=== PATIENT | male | born 1930 | race Caucasian/White ===

== ENCOUNTER 2017-04-01 15:06 | Inpatient (IN) | payer MEDICARE, OTHER ==
[~2017-04-01] VITALS: Ht 182.9 cm; Wt 90.7 kg
[2017-04-01 15:30] LABS: BASOPHILS # (AUTO) 0.1 /CMM (0.0-0.2); BASOPHILS % (AUTO) 1.4 % (0.0-2.0); EOSINOPHILS # (AUTO) 0.1 /CMM (0.0-0.7); EOSINOPHILS % (AUTO) 1.9 % (0.0-6.0); HEMATOCRIT 33 % (39-51); HEMOGLOBIN 11.9 g/dL (13.5-17.5); LYMPHOCYTES # (AUTO) 1.3 /CMM (0.8-4.8); LYMPHOCYTES % (AUTO) 21.7 % (20.0-44.0); MEAN CORPUSCULAR HEMOGLOBIN 34 PG (26.0-33.0); MEAN CORPUSCULAR HGB CONC 36 g/dl (31.0-36.0); MEAN CORPUSCULAR VOLUME 95 fL (80-96); MONOCYTES # (AUTO) 0.6 /CMM (0.1-1.30); MONOCYTES % (AUTO) 9.2 % (2.0-12.0); NEUTROPHILS # (AUTO) 3.9 /CMM (1.8-8.9); NEUTROPHILS % (AUTO) 65.8 % (43.0-81.0); PLATELET COUNT (AUTO) 193 /CMM (150-450); RDW COEFFICIENT OF VARIATION 12.4 (11.5-15.0); RED BLOOD CELL COUNT(AUTO) 3.46 MIL/uL (4.5-6.0)
[2017-04-01 15:44] LABS: CARBON DIOXIDE 29 mmol/L (21-32); CHLORIDE 105 mmol/L (98-107); CREATININE 1.1 mg/dL (0.6-1.3); GLUCOSE 108 mg/dL (74-106); SODIUM SERUM 139 mmol/L (136-145); UREA NITROGEN, BLOOD 26 mg/dL (7-18)
[2017-04-01 15:45] LABS: ALCOHOL, BLOOD < 3 mg/dL (0-0)
[2017-04-01] MEDS ORDERED: POLY119P2 PO (16:34)
[2017-04-01] MEDS ORDERED: FLUT1BLS IH (16:34)
[2017-04-01] MEDS ORDERED: TAMS0.4C34 PO (16:34)
[2017-04-01] MEDS ORDERED: BISA10SU8 RC (16:34)
[2017-04-01] MEDS ORDERED: QUET25TA PO (16:34)
[2017-04-01] MEDS ORDERED: MAGN400O6 PO (16:34)
[2017-04-01] MEDS ORDERED: ATOR20TA PO (16:34)
[2017-04-01] MEDS ORDERED: ASPI-1169 PO (16:34)
[2017-04-01] MEDS ORDERED: DIVA250T PO (16:34)
[2017-04-01] MEDS ORDERED: HYDR-552 PO (16:34)
[2017-04-01] MEDS ORDERED: ACET-2605 PO (16:34)
[2017-04-01] MEDS ORDERED: RIVA1PAT3 TD (16:34)
[2017-04-01] MEDS ORDERED: AMLO5TAB2 PO (16:34)
[2017-04-01] MEDS ORDERED: HYDR-4076 PO (16:34)
[2017-04-01] MEDS ORDERED: MAG30ORA PO (16:34)
[2017-04-01] MEDS ORDERED: FLUT9.9S BNOSTRILS (16:34)
[2017-04-01] MEDS ORDERED: QUET50TA PO (16:34)
[2017-04-01] MEDS ORDERED: CLOP75TA15 PO (16:34)
[2017-04-01] MEDS ORDERED: LORA-258 PO (16:34)
[2017-04-01] MEDS ORDERED: TEMA7.5C PO (16:34)
[2017-04-01 17:15] LABS: APPEARANCE,URINE Clear (CLEAR); BILIRUBIN,URINE Negative (NEGATIVE); BLOOD, URINE Negative Ery/uL (NEGATIVE); COLOR,URINE Yellow (YELLOW); KETONES,URINE 15 (NEGATIVE); LEUKOCYTE ESTERASE ,URINE Negative (NEGATIVE); NITRITE, URINE Negative (NEGATIVE); PROTEIN,URINE Negative (NEGATIVE); UGLUCOSE Negative (NEGATIVE); UROBILINOGEN,URINE 0.2 EU/dL (0.2)
[2017-04-01 17:32] LABS: BACTERIA,URINE None seen /HPF (None Seen); RBC,URINE 0-2 /HPF (0-2); SQUAMOUS EPITHELIAL CELL,UR Few /HPF (None Seen); WBC,URINE 0-2 /HPF (0-3)
[2017-04-01 18:41] VITALS: BP 148/69
[2017-04-01] MEDS ORDERED: MAG HYDROX/AL HYDROX/SIMETH 30 ML UDC PO PRN ×2 (19:00→20:30)
[2017-04-01] MEDS ORDERED: LORAZEPAM 0.5 MG TABLET PO PRN (19:00)
[2017-04-01] MEDS ORDERED: MAGNESIUM HYDROXIDE 30 ML UDC PO PRN (19:00)
[2017-04-01 19:45] VITALS: BP 140/77
[2017-04-01] MEDS ORDERED: DONE5TAB34 PO (19:51)
[2017-04-01] MEDS ORDERED: DICL100G34 (19:51)
[2017-04-01] MEDS ORDERED: MUPI15CR12 (19:51)
[2017-04-01] MEDS ORDERED: CARI350T27 (19:51)
[2017-04-01] MEDS ORDERED: BISACODYL SUPP (10 MG) 10 MG/SUPP.RECT SUPP.RECT RC PRN (20:30)
[2017-04-01] MEDS ORDERED: HYDROCODONE/APAP 5/325MG 1 EACH TABLET PO PRN (20:30)
[2017-04-01] MEDS ORDERED: MISCELLANEOUS MED 1 EA EA PO PRN (20:30)
[2017-04-01] MEDS: hydrALAZINE HCL 25 MG TABLET PO SCH (21:00)
[2017-04-01] MEDS: AMLODIPINE BESYLATE 5 MG TABLET PO SCH (21:00)
[2017-04-01] MEDS: TEMAZEPAM 7.5 MG CAPSULE PO PRN (22:53)
[2017-04-02] MEDS: hydrALAZINE HCL 25 MG TABLET PO SCH ×3 (05:00→22:03)
[2017-04-02] MEDS: DONEPEZIL 5 MG TABLET PO SCH (08:39)
[2017-04-02] MEDS: ASPIRIN 81 MG TAB.CHEW PO SCH (08:40)
[2017-04-02] MEDS: TAMSULOSIN 0.4 MG CAP.SR.24H PO SCH (08:40)
[2017-04-02] MEDS: CLOPIDOGREL BISULFATE 75 MG TABLET PO SCH (08:40)
[2017-04-02] MEDS: AMLODIPINE BESYLATE 5 MG TABLET PO SCH ×2 (08:44→22:02)
[2017-04-02 09:33] LABS: CHOLESTEROL 182 mg/dL (<200); HDL CHOLESTEROL 46 mg/dL (40-60); LDL 92 mg/dL (0-99); TRIGLYCERIDES 301 mg/dL (30-150)
[2017-04-02 09:37] VITALS: BP 133/78
[2017-04-02 09:40] LABS: ALANINE AMINOTRANSFERASE 33 U/L (12-78); ALBUMIN 3.8 g/dL (3.4-5.0); ALKALINE PHOSPHATASE 51 U/L (46-116); ASPARTATE AMINOTRANSFERASE 22 U/L (15-37); BILIRUBIN,TOTAL 0.5 mg/dL (0.2-1.0); CALCIUM, SERUM 9.2 mg/dL (8.5-10.1); CARBON DIOXIDE 28 mmol/L (21-32); CHLORIDE 103 mmol/L (98-107); CREATININE 1.1 mg/dL (0.6-1.3); GLUCOSE 171 mg/dL (74-106); POTASSIUM 3.7 mmol/L (3.5-5.1); SODIUM SERUM 140 mmol/L (136-145); TOTAL PROTEIN, SERUM 7.2 g/dL (6.4-8.2); UREA NITROGEN, BLOOD 24 mg/dL (7-18)
[2017-04-02] MEDS: FLUTICASONE/VILANTEROL 1 EACH BLST.W.DEV IH SCH (10:42)
[2017-04-02] MEDS: FLUTICASONE PROPIONATE 16 GM BOTTLE NS SCH (12:22)
[2017-04-02] MEDS: DIVALPROEX SODIUM 125 MG CAP.SPRINK PO SCH ×2 (13:19→16:33)
[2017-04-02] MEDS: QUETIAPINE FUMARATE 25 MG TABLET PO SCH ×2 (13:19→16:33)
[2017-04-02] MEDS: busPIRone 5 MG TABLET PO SCH ×2 (13:19→16:33)
[2017-04-02 16:00] VITALS: BP 144/67
[2017-04-02 19:43] VITALS: BP 141/67
[2017-04-02] MEDS: ATORVASTATIN 10 MG TABLET PO SCH (22:02)
[2017-04-03] MEDS: hydrALAZINE HCL 25 MG TABLET PO SCH ×3 (05:36→21:19)
[2017-04-03 08:00] VITALS: BP 153/82
[2017-04-03] MEDS: CLOPIDOGREL BISULFATE 75 MG TABLET PO SCH (08:49)
[2017-04-03] MEDS: AMLODIPINE BESYLATE 5 MG TABLET PO SCH ×2 (08:50→21:19)
[2017-04-03] MEDS: busPIRone 5 MG TABLET PO SCH ×3 (08:51→17:26)
[2017-04-03] MEDS: QUETIAPINE FUMARATE 25 MG TABLET PO SCH ×3 (08:51→17:26)
[2017-04-03] MEDS: DIVALPROEX SODIUM 125 MG CAP.SPRINK PO SCH ×4 (08:51→21:14)
[2017-04-03] MEDS: ASPIRIN 81 MG TAB.CHEW PO SCH (08:51)
[2017-04-03] MEDS: DONEPEZIL 5 MG TABLET PO SCH (08:51)
[2017-04-03] MEDS: TAMSULOSIN 0.4 MG CAP.SR.24H PO SCH (08:52)
[2017-04-03] MEDS: FLUTICASONE/VILANTEROL 1 EACH BLST.W.DEV IH SCH (12:38)
[2017-04-03] MEDS: FLUTICASONE PROPIONATE 16 GM BOTTLE NS SCH (12:39)
[2017-04-03 16:26] VITALS: BP 110/60
[2017-04-03 20:19] VITALS: BP 155/63
[2017-04-03] MEDS: ATORVASTATIN 10 MG TABLET PO SCH (21:13)
[2017-04-04] MEDS: hydrALAZINE HCL 25 MG TABLET PO SCH ×3 (05:16→21:30)
[2017-04-04 08:00] VITALS: BP 133/74
[2017-04-04] MEDS: FLUTICASONE PROPIONATE 16 GM BOTTLE NS SCH (09:33)
[2017-04-04] MEDS: FLUTICASONE/VILANTEROL 1 EACH BLST.W.DEV IH SCH (09:33)
[2017-04-04] MEDS: QUETIAPINE FUMARATE 25 MG TABLET PO SCH ×4 (09:33→21:29)
[2017-04-04] MEDS: TAMSULOSIN 0.4 MG CAP.SR.24H PO SCH (09:34)
[2017-04-04] MEDS: busPIRone 5 MG TABLET PO SCH ×3 (09:34→16:40)
[2017-04-04] MEDS: ASPIRIN 81 MG TAB.CHEW PO SCH (09:34)
[2017-04-04] MEDS: DONEPEZIL 5 MG TABLET PO SCH (09:34)
[2017-04-04] MEDS: DIVALPROEX SODIUM 125 MG CAP.SPRINK PO SCH ×3 (09:34→21:29)
[2017-04-04] MEDS: AMLODIPINE BESYLATE 5 MG TABLET PO SCH ×2 (09:34→21:30)
[2017-04-04] MEDS: CLOPIDOGREL BISULFATE 75 MG TABLET PO SCH (09:34)
[2017-04-04 13:28] VITALS: BP 128/62
[2017-04-04 15:52] VITALS: BP 104/55
[2017-04-04 20:14] VITALS: BP 150/74
[2017-04-04] MEDS: ATORVASTATIN 10 MG TABLET PO SCH (21:29)
[2017-04-05] MEDS: hydrALAZINE HCL 25 MG TABLET PO SCH (05:04)
[2017-04-05 08:00] VITALS: BP 160/79
[2017-04-05 08:26] LABS: BASOPHILS # (AUTO) 0.1 /CMM (0.0-0.2); BASOPHILS % (AUTO) 0.7 % (0.0-2.0); EOSINOPHILS # (AUTO) 0.1 /CMM (0.0-0.7); EOSINOPHILS % (AUTO) 1.5 % (0.0-6.0); HEMATOCRIT 36 % (39-51); HEMOGLOBIN 12.4 g/dL (13.5-17.5); LYMPHOCYTES % (AUTO) 13.1 % (20.0-44.0); MEAN CORPUSCULAR HEMOGLOBIN 33 PG (26.0-33.0); MEAN CORPUSCULAR HGB CONC 34 g/dl (31.0-36.0); MEAN CORPUSCULAR VOLUME 97 fL (80-96); MONOCYTES # (AUTO) 0.7 /CMM (0.1-1.30); NEUTROPHILS # (AUTO) 5.5 /CMM (1.8-8.9); NEUTROPHILS % (AUTO) 75.7 % (43.0-81.0); PLATELET COUNT (AUTO) 194 /CMM (150-450); RDW COEFFICIENT OF VARIATION 12.5 (11.5-15.0); RED BLOOD CELL COUNT(AUTO) 3.75 MIL/uL (4.5-6.0); WHITE BLOOD COUNT (AUTO) 7.4 K/uL (4.3-11.0)
[2017-04-05] MEDS: FLUTICASONE/VILANTEROL 1 EACH BLST.W.DEV IH SCH (08:42)
[2017-04-05] MEDS: FLUTICASONE PROPIONATE 16 GM BOTTLE NS SCH (08:42)
[2017-04-05 08:59] LABS: VALPROIC ACID 24 ug/mL (50-100)
[2017-04-05 09:16] LABS: ALANINE AMINOTRANSFERASE 28 U/L (12-78); ALBUMIN 3.6 g/dL (3.4-5.0); ALKALINE PHOSPHATASE 52 U/L (46-116); ASPARTATE AMINOTRANSFERASE 20 U/L (15-37); BILIRUBIN,TOTAL 0.5 mg/dL (0.2-1.0); CALCIUM, SERUM 8.9 mg/dL (8.5-10.1); CARBON DIOXIDE 28 mmol/L (21-32); CHLORIDE 107 mmol/L (98-107); GLUCOSE 127 mg/dL (74-106); POTASSIUM 4.2 mmol/L (3.5-5.1); SODIUM SERUM 145 mmol/L (136-145); UREA NITROGEN, BLOOD 22 mg/dL (7-18)
[2017-04-05] MEDS: AMLODIPINE BESYLATE 5 MG TABLET PO SCH ×2 (09:37→21:21)
[2017-04-05] MEDS: ASPIRIN 81 MG TAB.CHEW PO SCH (09:37)
[2017-04-05] MEDS: QUETIAPINE FUMARATE 25 MG TABLET PO SCH ×4 (09:37→21:22)
[2017-04-05] MEDS: busPIRone 5 MG TABLET PO SCH ×3 (09:37→16:04)
[2017-04-05] MEDS: DONEPEZIL 5 MG TABLET PO SCH (09:37)
[2017-04-05] MEDS: DIVALPROEX SODIUM 125 MG CAP.SPRINK PO SCH ×4 (09:37→21:21)
[2017-04-05] MEDS: CLOPIDOGREL BISULFATE 75 MG TABLET PO SCH (09:38)
[2017-04-05] MEDS: TAMSULOSIN 0.4 MG CAP.SR.24H PO SCH (09:38)
[2017-04-05] MEDS ORDERED: hydrALAZINE HCL 25 MG TABLET PO PRN (11:30)
[2017-04-05 11:52] VITALS: BP 118/69
[2017-04-05] MEDS: LISINOPRIL (10MG) 10 MG TABLET PO SCH (11:52)
[2017-04-05 15:58] VITALS: BP 111/58
[2017-04-05 20:00] VITALS: BP 122/67
[2017-04-05] MEDS: ATORVASTATIN 10 MG TABLET PO SCH (21:22)
[2017-04-06 08:00] VITALS: BP 146/79
[2017-04-06 08:00] LABS: CALCIUM, SERUM 9.2 mg/dL (8.5-10.1); CARBON DIOXIDE 27 mmol/L (21-32); CHLORIDE 105 mmol/L (98-107); CREATININE 1.2 mg/dL (0.6-1.3); GLUCOSE 137 mg/dL (74-106); PHOSPHORUS 3.5 mg/dL (2.5-4.9); POTASSIUM 4.1 mmol/L (3.5-5.1); SODIUM SERUM 142 mmol/L (136-145); UREA NITROGEN, BLOOD 26 mg/dL (7-18)
[2017-04-06] MEDS: ASPIRIN 81 MG TAB.CHEW PO SCH (09:17)
[2017-04-06] MEDS: DONEPEZIL 5 MG TABLET PO SCH (09:17)
[2017-04-06] MEDS: DIVALPROEX SODIUM 125 MG CAP.SPRINK PO SCH ×4 (09:17→21:23)
[2017-04-06] MEDS: TAMSULOSIN 0.4 MG CAP.SR.24H PO SCH (09:17)
[2017-04-06] MEDS: busPIRone 5 MG TABLET PO SCH ×3 (09:17→17:00)
[2017-04-06] MEDS: QUETIAPINE FUMARATE 25 MG TABLET PO SCH ×4 (09:17→21:23)
[2017-04-06] MEDS: LISINOPRIL (10MG) 10 MG TABLET PO SCH (09:17)
[2017-04-06] MEDS: CLOPIDOGREL BISULFATE 75 MG TABLET PO SCH (09:17)
[2017-04-06] MEDS: FLUTICASONE PROPIONATE 16 GM BOTTLE NS SCH (09:18)
[2017-04-06] MEDS: FLUTICASONE/VILANTEROL 1 EACH BLST.W.DEV IH SCH (09:18)
[2017-04-06] MEDS: AMLODIPINE BESYLATE 5 MG TABLET PO SCH ×2 (09:18→20:57)
[2017-04-06 09:36] LABS: THYROID STIMULATING HORMONE 1.357 uIU/mL (0.358-3.74)
[2017-04-06 16:00] VITALS: BP 129/58
[2017-04-06] MEDS: TEMAZEPAM 7.5 MG CAPSULE PO PRN (20:58)
[2017-04-06] MEDS: ATORVASTATIN 10 MG TABLET PO SCH (21:23)
[2017-04-06 21:34] VITALS: BP 137/69
[2017-04-06] MEDS: ACETAMINOPHEN 325 MG TABLET PO PRN (22:39)
[2017-04-07 08:00] VITALS: BP 120/60
[2017-04-07 08:12] LABS: BASOPHILS % (AUTO) 0.3 % (0.0-2.0); EOSINOPHILS % (AUTO) 0.1 % (0.0-6.0); HEMATOCRIT 34 % (39-51); HEMOGLOBIN 12.1 g/dL (13.5-17.5); LYMPHOCYTES # (AUTO) 0.5 /CMM (0.8-4.8); LYMPHOCYTES % (AUTO) 5.7 % (20.0-44.0); MEAN CORPUSCULAR HEMOGLOBIN 34 PG (26.0-33.0); MEAN CORPUSCULAR HGB CONC 35 g/dl (31.0-36.0); MEAN CORPUSCULAR VOLUME 97 fL (80-96); MONOCYTES # (AUTO) 0.8 /CMM (0.1-1.30); MONOCYTES % (AUTO) 9.2 % (2.0-12.0); NEUTROPHILS # (AUTO) 7.5 /CMM (1.8-8.9); NEUTROPHILS % (AUTO) 84.7 % (43.0-81.0); PLATELET COUNT (AUTO) 166 /CMM (150-450); RDW COEFFICIENT OF VARIATION 12.8 (11.5-15.0); RED BLOOD CELL COUNT(AUTO) 3.56 MIL/uL (4.5-6.0); WHITE BLOOD COUNT (AUTO) 8.8 K/uL (4.3-11.0)
[2017-04-07 08:32] LABS: CALCIUM, SERUM 8.8 mg/dL (8.5-10.1); CARBON DIOXIDE 26 mmol/L (21-32); CHLORIDE 106 mmol/L (98-107); CREATININE 0.9 mg/dL (0.6-1.3); GLUCOSE 148 mg/dL (74-106); PHOSPHORUS 2.8 mg/dL (2.5-4.9); POTASSIUM 3.5 mmol/L (3.5-5.1); SODIUM SERUM 142 mmol/L (136-145); UREA NITROGEN, BLOOD 20 mg/dL (7-18)
[2017-04-07] MEDS: FLUTICASONE PROPIONATE 16 GM BOTTLE NS SCH (10:06)
[2017-04-07] MEDS: FLUTICASONE/VILANTEROL 1 EACH BLST.W.DEV IH SCH (10:06)
[2017-04-07] MEDS: ASPIRIN 81 MG TAB.CHEW PO SCH (10:07)
[2017-04-07] MEDS: QUETIAPINE FUMARATE 25 MG TABLET PO SCH ×3 (10:07→22:53)
[2017-04-07] MEDS: LISINOPRIL (10MG) 10 MG TABLET PO SCH (10:08)
[2017-04-07] MEDS: busPIRone 5 MG TABLET PO SCH ×3 (10:08→16:33)
[2017-04-07] MEDS: AMLODIPINE BESYLATE 5 MG TABLET PO SCH ×2 (10:08→21:29)
[2017-04-07] MEDS: CLOPIDOGREL BISULFATE 75 MG TABLET PO SCH (10:09)
[2017-04-07] MEDS: TAMSULOSIN 0.4 MG CAP.SR.24H PO SCH (10:09)
[2017-04-07] MEDS: DIVALPROEX SODIUM 125 MG CAP.SPRINK PO SCH ×4 (10:09→21:30)
[2017-04-07] MEDS: DONEPEZIL 5 MG TABLET PO SCH (10:09)
[2017-04-07] MEDS ORDERED: GUAIFENESIN/CODEINE 10 ML UDC PO PRN (15:30)
[2017-04-07 16:00] VITALS: BP 129/62
[2017-04-07] MEDS ORDERED: LEVOFLOXACIN (500MG) 500 MG TABLET PO SCH (16:00)
[2017-04-07] MEDS: GUAIFENESIN LA 600 MG TABLET.SA PO SCH ×2 (16:31→21:29)
[2017-04-07] MEDS: BENZONATATE 100 MG CAPSULE PO SCH (16:47)
[2017-04-07 20:00] VITALS: BP 119/57
[2017-04-07] MEDS: ATORVASTATIN 10 MG TABLET PO SCH (21:30)
[2017-04-07] MEDS: TEMAZEPAM 7.5 MG CAPSULE PO PRN (21:30)
[2017-04-07] MEDS ORDERED: ALBUTEROL FS 2.5 MG/0.5 ML VIAL.NEB ONE (21:41)
[2017-04-07] MEDS ORDERED: IPRATROPIUM NEB FS 0.5 MG/2.5 ML AMPUL.NEB ONE (21:42)
[2017-04-07] MEDS: IPRATROPIUM NEB FS 0.5 MG/2.5 ML AMPUL.NEB NEB PRN (21:51)
[2017-04-07] MEDS: ALBUTEROL FS 2.5 MG/0.5 ML VIAL.NEB NEB PRN (21:53)
[2017-04-08] MEDS: ACETAMINOPHEN 325 MG TABLET PO PRN (01:11)
[2017-04-08 07:40] LABS: BASOPHILS % (AUTO) 0.4 % (0.0-2.0); HEMATOCRIT 30 % (39-51); HEMOGLOBIN 10.5 g/dL (13.5-17.5); LYMPHOCYTES # (AUTO) 0.5 /CMM (0.8-4.8); LYMPHOCYTES % (AUTO) 8.2 % (20.0-44.0); MEAN CORPUSCULAR HEMOGLOBIN 34 PG (26.0-33.0); MEAN CORPUSCULAR HGB CONC 35 g/dl (31.0-36.0); MEAN CORPUSCULAR VOLUME 97 fL (80-96); MONOCYTES # (AUTO) 0.8 /CMM (0.1-1.30); NEUTROPHILS # (AUTO) 5.1 /CMM (1.8-8.9); NEUTROPHILS % (AUTO) 79.4 % (43.0-81.0); PLATELET COUNT (AUTO) 165 /CMM (150-450); RDW COEFFICIENT OF VARIATION 12.9 (11.5-15.0); RED BLOOD CELL COUNT(AUTO) 3.11 MIL/uL (4.5-6.0); WHITE BLOOD COUNT (AUTO) 6.4 K/uL (4.3-11.0)
[2017-04-08 07:56] LABS: CALCIUM, SERUM 8.5 mg/dL (8.5-10.1); CARBON DIOXIDE 26 mmol/L (21-32); CHLORIDE 107 mmol/L (98-107); CREATININE 1.3 mg/dL (0.6-1.3); GLUCOSE 158 mg/dL (74-106); PHOSPHORUS 3.5 mg/dL (2.5-4.9); POTASSIUM 3.8 mmol/L (3.5-5.1); SODIUM SERUM 144 mmol/L (136-145); UREA NITROGEN, BLOOD 27 mg/dL (7-18); VALPROIC ACID 23 ug/mL (50-100)
[2017-04-08 08:00] VITALS: BP 97/53
[2017-04-08 09:00] VITALS: BP 97/53
[2017-04-08] MEDS: GUAIFENESIN LA 600 MG TABLET.SA PO SCH (09:00)
[2017-04-08] MEDS: DONEPEZIL 5 MG TABLET PO SCH (09:00)
[2017-04-08] MEDS: TAMSULOSIN 0.4 MG CAP.SR.24H PO SCH (09:00)
[2017-04-08] MEDS: BENZONATATE 100 MG CAPSULE PO SCH ×2 (09:00→12:59)
[2017-04-08] MEDS: FLUTICASONE PROPIONATE 16 GM BOTTLE NS SCH (09:00)
[2017-04-08] MEDS: DIVALPROEX SODIUM 125 MG CAP.SPRINK PO SCH ×2 (09:00→12:59)
[2017-04-08] MEDS: QUETIAPINE FUMARATE 25 MG TABLET PO SCH (09:00)
[2017-04-08] MEDS: LISINOPRIL (10MG) 10 MG TABLET PO SCH (09:00)
[2017-04-08] MEDS ORDERED: predniSONE 20 MG TABLET PO SCH (09:00)
[2017-04-08] MEDS: FLUTICASONE/VILANTEROL 1 EACH BLST.W.DEV IH SCH (09:00)
[2017-04-08] MEDS: AMLODIPINE BESYLATE 5 MG TABLET PO SCH (09:00)
[2017-04-08] MEDS: busPIRone 5 MG TABLET PO SCH ×2 (09:00→12:59)
[2017-04-08] MEDS: ASPIRIN 81 MG TAB.CHEW PO SCH (09:00)
[2017-04-08] MEDS: CLOPIDOGREL BISULFATE 75 MG TABLET PO SCH (09:00)
[2017-04-08] MEDS: IPRATROPIUM NEB FS 0.5 MG/2.5 ML AMPUL.NEB NEB PRN (11:38)
[2017-04-08] MEDS: ALBUTEROL FS 2.5 MG/0.5 ML VIAL.NEB NEB PRN (11:38)
[2017-04-08] MEDS ORDERED: PRED20TA PO (15:26)
[2017-04-08] MEDS ORDERED: ACET325T53 PO (15:26)
[2017-04-08] MEDS ORDERED: IPRA0.2S49 IH (15:26)
[2017-04-08] MEDS ORDERED: LEVO500T75 PO (15:26)
[2017-04-08] MEDS ORDERED: LISI10TA5 PO (15:26)
[2017-04-08] MEDS ORDERED: GUAI600T53 PO (15:26)
[2017-04-08] MEDS ORDERED: BENZ-38 PO (15:26)
[2017-04-08] MEDS ORDERED: ALBU2.5V13 IH (15:26)
[2017-04-08] MEDS ORDERED: GUAI118S13 PO (15:26)
[2017-04-08] MEDS ORDERED: [UNRECOGNIZED DRUG - CODE] IV (15:26)
[2017-04-08] MEDS ORDERED: PIPERACILLIN /TAZOBACTAM 4.5 G in IV D5W 50 ML IV SCH (18:00)
== END 2017-04-08 14:42 | disposition short-term general hospital (02) | DRG 885 ==
LOC: ER 15:09 → GPS 17:30
PROVIDERS: ADMIT Psychiatry & Neurology Psychosomatic Medicine; ATTEND Psychiatry & Neurology Psychosomatic Medicine
DX: F29 Unspecified psychosis not due to a substance or known physiological condition (principal); F02.80 Dementia in other diseases classified elsewhere, unspecified severity, without behavioral disturbance, psychotic disturbance, mood disturbance, and anxiety; I11.0 Hypertensive heart disease with heart failure; J18.9 Pneumonia, unspecified organism; I50.9 Heart failure, unspecified; G31.83 Neurocognitive disorder with Lewy bodies; F41.9 Anxiety disorder, unspecified; I25.10 Atherosclerotic heart disease of native coronary artery without angina pectoris; E78.5 Hyperlipidemia, unspecified; F32.9 Major depressive disorder, single episode, unspecified; J44.9 Chronic obstructive pulmonary disease, unspecified; M19.90 Unspecified osteoarthritis, unspecified site; M81.0 Age-related osteoporosis without current pathological fracture; Z66 Do not resuscitate; Z85.46 Personal history of malignant neoplasm of prostate; Z95.1 Presence of aortocoronary bypass graft; Z73.6 Limitation of activities due to disability; N40.0 Benign prostatic hyperplasia without lower urinary tract symptoms
CPT/HCPCS: 36415; 71045-TC; 80048-TC; 80053-TC; 80061-TC; 80164-TC; 80305; 81000-TC; 83735-TC; 84100-TC; 84443-TC; 85025-TC; 87040-TC; 87081-TC; 87400; 94640-TC; A4606; G0480; J2543; J7060; Z7610

== ENCOUNTER 2017-04-08 15:07 | Inpatient (IN) | payer MEDICARE, OTHER ==
[~2017-04-08] VITALS: Ht 175.3 cm; Wt 71.9 kg
[~2017-04-08 15:07] MED LIST: ACET-2605 PO; AMLO5TAB2 PO; ASPI-1169 PO; ATOR20TA PO; BISA10SU8 RC; CARI350T27; CLOP75TA15 PO; DICL100G34; DONE5TAB34 PO; FLUT1BLS IH; FLUT9.9S BNOSTRILS; HYDR-4076 PO; HYDR-552 PO; MAG30ORA PO; MAGN400O6 PO; MUPI15CR12; POLY119P2 PO; TAMS0.4C34 PO
[2017-04-08] MEDS ORDERED: GUAI118S13 PO (15:26)
[2017-04-08] MEDS ORDERED: IPRA0.2S49 IH (15:26)
[2017-04-08] MEDS ORDERED: BENZ-38 PO (15:26)
[2017-04-08] MEDS ORDERED: [UNRECOGNIZED DRUG - CODE] IV (15:26)
[2017-04-08] MEDS ORDERED: GUAI600T53 PO (15:26)
[2017-04-08] MEDS ORDERED: ACET325T53 PO (15:26)
[2017-04-08] MEDS ORDERED: ALBU2.5V13 IH (15:26)
[2017-04-08] MEDS ORDERED: LISI10TA5 PO (15:26)
[2017-04-08] MEDS ORDERED: LEVO500T75 PO (15:26)
[2017-04-08] MEDS ORDERED: PRED20TA PO (15:26)
[2017-04-08 15:30] VITALS: BP 129/73
--- NOTE | 2017-04-08 15:30 | NUR ---
ADMISSION NOTES PATIENT ADMITTED FROM [facility] 86 Y/OLD MALE ON DX OF R/O ASPIRATION PRECAUTION, PNEUMONIA. PATIENT A/O X1, CONFUSED, NEED CONSTANT REDIRECTION BUT REDIRECTABLE, V/S TAKEN T-98.6, R-19, P-104, BP -129/73, O2-94 ROOM AIR. 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 BELONGING AND CONTRABAND CHECKED, CALL LIGHT WITHIN TO REACH, BED ALARM ON, SAFETY PRECAUTION MAINTAINED ALL THE TIME. AWARE PATIENT ADMISSION. CONTINUED MONITORING.
[2017-04-08 16:00] VITALS: BP 129/73
--- NOTE | 2017-04-08 18:00 | NUR ---
RN NOTES PATIENT IN THE BED CONFUSED , NEED CONSTANT REDIRECTION, NO ACUTE DISTRESS, NO RESPIRATORY DISTRESS, PATIENT REFUSED IV ACCESS LINE, CALL LIGHT WITHIN TO REACH, ENDORSED ONCOMING NURSE FOR CONTINUATION OF CARE.
--- NOTE | 2017-04-08 19:30 | NUR ---
MS RN NOTE RECEIVED PATIENT ALERT X1 IN BED. NO SOB OR RESPIRATORY DISTRESS NOTED. PATIENT DENIES ANY PAIN OR DISCOMFORT AT THIS TIME. PATIENT HAS NO IV ACCESS, AND IS REFUSING TO HAVE IV PLACED. EXPLAINED BENEFITS OF IV. STATED THAT HE NEEDS FLUIDS/ANTIBIOTICS. PT. CONTINUES TO REFUSE. WILL TRY AGAIN LATER. BED LOCKED AND IN LOWEST POSITION. SIDE RAILS UP, CALL LIGHT WITHIN REACH. WILL CONTINUE TO MONITOR.
[2017-04-08] MEDS: ASPIRIN 81 MG TAB.CHEW PO SCH (20:30)
[2017-04-08] MEDS ORDERED: hydrALAZINE HCL 25 MG TABLET PO PRN (20:30)
[2017-04-08] MEDS ORDERED: ENOXAPARIN SODIUM 40 MG/0.4 ML DISP.SYRIN SQ SCH (20:30)
[2017-04-08] MEDS ORDERED: Z GUARD REMEDY 2 OZ OINT TP PRN (20:30)
[2017-04-08] MEDS ORDERED: ACETAMINOPHEN 325 MG TABLET PO PRN (20:30)
[2017-04-08] MEDS ORDERED: MAG HYDROX/AL HYDROX/SIMETH 30 ML UDC PO PRN ×2 (20:30)
[2017-04-08] MEDS ORDERED: MAGNESIUM HYDROXIDE 30 ML UDC PO PRN (20:30)
[2017-04-08] MEDS ORDERED: BISACODYL SUPP (10 MG) 10 MG/SUPP.RECT SUPP.RECT RC PRN (20:30)
[2017-04-08] MEDS ORDERED: ONDANSETRON HCL/PF 4 MG/2 ML VIAL IVP PRN (20:30)
[2017-04-08] MEDS ORDERED: HYDROCODONE/APAP 5/325MG 1 EACH TABLET PO PRN (20:30)
[2017-04-08] MEDS ORDERED: ZOLPIDEM TARTRATE 5 MG TABLET PO PRN (20:30)
[2017-04-08] MEDS ORDERED: ALBUTEROL FS 2.5 MG/3 ML VIAL.NEB NEB PRN (20:30)
[2017-04-08] MEDS ORDERED: IV NS 0.9% 1,000 ML IV PRN (21:00)
[2017-04-08] MEDS: GUAIFENESIN LA 600 MG TABLET.SA PO SCH (21:00)
[2017-04-08] MEDS ORDERED: PIPERACILLIN /TAZOBACTAM 4.5 G in IV D5W 50 ML IV SCH (21:00)
--- NOTE | 2017-04-08 21:30 | NUR ---
MS RN NOTE PATIENT REFUSING IV INSERTION, ALL MEDICATION AND LAB DRAWS. EDUCATED PATIENT ON IMPORTANCE. CONTINUES TO REFUSE. WILL NOTIFY MD FILTRATION SUPERVISOR.
--- NOTE | 2017-04-08 21:35 | NUR ---
MS RN NOTE SPOKE WITH OVER THE TELEPHONE. SHE STATES THAT PATIENT IS ALWAYS CONFUSED AND REFUSES CARE WHEREVER HE GOES. SHE STATED THAT WHENEVER HE HAS AN IV, HE PULLS IT OUT. SHE SAID THAT SHE WILL BE HERE LATE TOMORROW MORNING.
--- NOTE | 2017-04-08 21:45 | NUR ---
MS RN NOTE INFORMED DR. BRIONES THAT PATIENT IS NON-COMPLIANT, REFUSING IV, REFUSING ALL CARE. NEW ORDER FOR MID-LINE INSERTION AT THIS TIME. WILL CALL JET DYEING MACHINE OPERATOR.
--- NOTE | 2017-04-08 21:50 | NUR ---
MS RN NOTE INFORMED CHISEL WORKER JOSE THAT PATIENT NEEDS A MIDLINE. JOSE SAYS THAT MICHELLE WILL BE HERE AR APPROX. 2300 TO INSERT. WILL CONTINUE TO MONITOR.
[2017-04-08 22:00] VITALS: BP 129/73
--- NOTE | 2017-04-08 23:00 | NUR ---
MS RN NOTE INFORMED REGARDING LACTIC ACID OF 2.3. STILL WAITING FOR MIDLINE. PATIENT CONTINUES TO REFUSE IV ACCESS AT THIS TIME. WILL CONTINUE TO MONITOR.
[2017-04-08 23:27] LABS: CARBON DIOXIDE 28 mmol/L (21-32); CHLORIDE 109 mmol/L (98-107); CREATININE 1.2 mg/dL (0.6-1.3); GLUCOSE 126 mg/dL (74-106); POTASSIUM 4.1 mmol/L (3.5-5.1); SODIUM SERUM 146 mmol/L (136-145); UREA NITROGEN, BLOOD 31 mg/dL (7-18)
[2017-04-08 23:37] LABS: ALANINE AMINOTRANSFERASE 35 U/L (12-78); ALBUMIN 2.7 g/dL (3.4-5.0); ALKALINE PHOSPHATASE 49 U/L (46-116); ASPARTATE AMINOTRANSFERASE 64 U/L (15-37); BILIRUBIN,TOTAL 0.7 mg/dL (0.2-1.0); TOTAL PROTEIN, SERUM 7.2 g/dL (6.4-8.2)
--- NOTE | 2017-04-09 00:30 | NUR ---
MS JELANI POLLACK SPOKE WITH MICHELLE HUSAIN THE TELEPHONE REGARDING MIDLINE INSERTION. HE SAID HE WILL BE HERE SHORTLY.
[2017-04-09 01:17] LABS: BILIRUBIN,DIRECT 0.2 mg/dL (0.0-0.2)
[2017-04-09] MEDS ORDERED: IPRATROPIUM NEB FS 0.5 MG/2.5 ML AMPUL.NEB ONE (01:28)
[2017-04-09] MEDS: IPRATROPIUM NEB FS 0.5 MG/2.5 ML AMPUL.NEB IH SCH ×4 (01:31→19:47)
--- NOTE | 2017-04-09 02:00 | NUR ---
MS RN NOTE LISA PLACED MIDLINE #18 TO MARTHA. PER LISA, PATIENT TOLERATED PROCEDURE OKAY. NO BLEEDING OR BRUISING NOTED. WILL CONTINUE TO MONITOR.
--- NOTE | 2017-04-09 04:15 | NUR ---
MS RN NOTE PATIENT PULLED OUT TUBING FROM NS BAG AND THEN INCREASINGLY AGITATED, PULLED OUT MIDLINE. ATTEMPTED TO DE-ESCALATE PATIENT. WILL NOTIFY MD. BED LOCKED AND IN LOWEST POSITION. BED ALARM ON. WILL CONTINUE TO MONITOR.
[2017-04-09] MEDS ORDERED: LORAZEPAM INJ 2 MG/ML VIAL IM ONE (04:30)
[2017-04-09] MEDS ORDERED: LORAZEPAM INJ 2 MG/ML VIAL IV PRN (04:30)
[2017-04-09] MEDS ORDERED: LORAZEPAM INJ 2 MG/ML VIAL ONE (04:33)
--- NOTE | 2017-04-09 04:40 | NUR ---
MS RN NOTE RECEIVED ORDERS FROM FOR ATIVAN 1MG IM AND BILATERAL SOFT WRIST RESTRAINTS. CARRIED OUT. PATIENT STABLE AT THIS TIME.
--- NOTE | 2017-04-09 04:49 | NUR ---
MS RN NOTE PATIENT STABLE AT THIS TIME. SLEEPING. VS WNL FOR APTIENT. WILL CONTINUE TO MONITOR.
--- NOTE | 2017-04-09 06:15 | NUR ---
MS RN NOTE ATTEMPTED TWICE TO PLACE AN IV WITH NO SUCCESS. PATIENT AGITATED. BILATERAL SOFT WRIST RESTRAINTS IN PLACE. ALL NEEDS MET AND ATTENDED TO. WILL ENDORSE TO DAY SHIFT FOR JAYA.
--- NOTE | 2017-04-09 07:00 | NUR ---
MS RN OPENING NOTES. PT A&0X1, PT WITH RESTRAINTS APPLIED. NEURO INTACT, PT REPOSITIONED. ENDORSED PT WAITING FOR MIDLINE DUE TO REMOVAL OF MULTIPLE IV LINES DURING NIGHT. PT REMAINS COMBATIVE. PT TOLERATING ROOM AIR WITHOUT S/S OF RESPIRATORY DISTRESS. PT REPORTING NO PAIN AND IS WITHOUT S/S OF DISTRESS OR DISCOMFORT. PT BRIEFED ON PLAN OF CARE, WILL CONTINUE TO REORIENTATE AND MONITOR CLOSELY.
[2017-04-09 07:24] LABS: BASOPHILS % (AUTO) 0.7 % (0.0-2.0); EOSINOPHILS % (AUTO) 0.5 % (0.0-6.0); HEMATOCRIT 33 % (39-51); HEMOGLOBIN 11.4 g/dL (13.5-17.5); LYMPHOCYTES # (AUTO) 0.6 /CMM (0.8-4.8); LYMPHOCYTES % (AUTO) 8.4 % (20.0-44.0); MEAN CORPUSCULAR HEMOGLOBIN 34 PG (26.0-33.0); MEAN CORPUSCULAR HGB CONC 35 g/dl (31.0-36.0); MEAN CORPUSCULAR VOLUME 98 fL (80-96); MONOCYTES # (AUTO) 0.7 /CMM (0.1-1.30); MONOCYTES % (AUTO) 9.4 % (2.0-12.0); NEUTROPHILS # (AUTO) 5.9 /CMM (1.8-8.9); PLATELET COUNT (AUTO) 189 /CMM (150-450); RDW COEFFICIENT OF VARIATION 12.7 (11.5-15.0); RED BLOOD CELL COUNT(AUTO) 3.35 MIL/uL (4.5-6.0); WHITE BLOOD COUNT (AUTO) 7.3 K/uL (4.3-11.0)
[2017-04-09 07:56] LABS: CHOLESTEROL 147 mg/dL (<200); HDL CHOLESTEROL 24 mg/dL (40-60); LDL 86 mg/dL (0-99); TRIGLYCERIDES 155 mg/dL (30-150)
[2017-04-09 08:00] VITALS: BP 142/75
[2017-04-09 08:03] LABS: CALCIUM, SERUM 8.9 mg/dL (8.5-10.1); CARBON DIOXIDE 26 mmol/L (21-32); CHLORIDE 108 mmol/L (98-107); CREATININE 1.2 mg/dL (0.6-1.3); GLUCOSE 130 mg/dL (74-106); MAGNESIUM 2.3 mg/dL (1.8-2.4); POTASSIUM 3.6 mmol/L (3.5-5.1); SODIUM SERUM 146 mmol/L (136-145); UREA NITROGEN, BLOOD 30 mg/dL (7-18)
[2017-04-09] MEDS: DONEPEZIL 5 MG TABLET PO SCH (09:00)
[2017-04-09] MEDS: FLUTICASONE/VILANTEROL 1 EACH BLST.W.DEV IH SCH (09:00)
[2017-04-09] MEDS: LISINOPRIL (10MG) 10 MG TABLET PO SCH (10:37)
[2017-04-09] MEDS: BENZONATATE 100 MG CAPSULE PO SCH ×3 (10:37→17:44)
[2017-04-09] MEDS: GUAIFENESIN LA 600 MG TABLET.SA PO SCH ×2 (10:38→21:13)
[2017-04-09] MEDS: ASPIRIN 81 MG TAB.CHEW PO SCH (10:38)
[2017-04-09] MEDS: CLOPIDOGREL BISULFATE 75 MG TABLET PO SCH (10:38)
[2017-04-09] MEDS: TAMSULOSIN 0.4 MG CAP.SR.24H PO SCH (10:38)
[2017-04-09] MEDS: LEVOFLOXACIN 750 MG /D5W 150ML 750 MG in PREMIX 1 EA IV SCH (11:30)
--- NOTE | 2017-04-09 11:30 | NUR ---
MS RN NOTES. UNABLE TO RUN IV'S WAITING FOR MIDLINE PLACEMENT
[2017-04-09] MEDS: PIPERACILLIN /TAZOBACTAM 3.375 G in IV D5W 50 ML IV SCH ×3 (12:00→23:14)
--- NOTE | 2017-04-09 12:00 | NUR ---
MS RN NOTES. UNABLE TO ADMIN IV AB WAITING FOR MIDLINE PLACEMENT.
--- NOTE | 2017-04-09 13:00 | NUR ---
RN NOTES. PT BEHAVIOR BECOMING AGGRESSIVE AND CONFUSED. CALM REASSURANCE ADMINISTERED AND DIVERSION .
--- NOTE | 2017-04-09 14:00 | NUR ---
RN NOTES. PT COMBATIVE, RESTRAINTS RE-APPLIED.
[2017-04-09] MEDS: busPIRone 5 MG TABLET PO SCH ×2 (14:05→17:45)
[2017-04-09] MEDS: ACETYLCYSTEINE 10% SOLN 400 MG/4 ML VIAL NEB SCH (15:30)
[2017-04-09 16:00] VITALS: BP 110/72
--- NOTE | 2017-04-09 19:30 | NUR ---
MS RN NOTES. PT A&0X1, PT WITH BI-LAT RESTRAINTS RE APPLIED BY MIDLINE NURSE FOR INSERTION. NEURO INTACT. MIDLINE NOW INSITU AT R UA G#18. ENDORSED TO NIGHT NURSE TO ADMIN IV THERAPIES UNABLE TO DO IN DAY. PT TOLERATING ROOM AIR WITHOUT S/S OF RESPIRATORY DISTRESS. PT WITHOUT S/S OF DISTRESS OR DISCOMFORT. BED IN LOWEST LOCKED POSITION WITH HANDRAILS X3 AND CALL MORGAN WITHIN REACH. ENDORSED TO NIGHT NURSE.
[2017-04-09] MEDS: IV NS 0.9% 1,000 ML IV PRN (19:40)
--- NOTE | 2017-04-09 19:40 | NUR ---
MS RN OPENING NOTES PT A&0X1, PT WITH RESTRAINTS APPLIED. NEURO INTACT, PT REPOSITIONED. MIDLINE INSERTED ON RIGHT UPPER ARM. FLUIDS AND ANTIBIOTICS INITIATED. PT IS ON RA WITH NO SIGNS OF SOB OR DISTRESS, BREATHING EVENLY AND UNLABORED ON RA. BED IS IN LOW AND LOCKED POSITION, CALL LIGHT WITHIN REACH. WILL CONTINUE TO MONITOR AND ASSESS PT.
[2017-04-09 20:00] VITALS: BP 150/67
[2017-04-10] MEDS: ACETYLCYSTEINE 10% SOLN 400 MG/4 ML VIAL NEB SCH ×4 (02:08→23:30)
[2017-04-10] MEDS: IPRATROPIUM NEB FS 0.5 MG/2.5 ML AMPUL.NEB IH SCH ×4 (02:08→20:10)
[2017-04-10] MEDS: PIPERACILLIN /TAZOBACTAM 3.375 G in IV D5W 50 ML IV SCH ×3 (05:45→17:16)
--- NOTE | 2017-04-10 06:36 | NUR ---
MS RN NOTES. PT A&0X1, PT WITH BILATERAL SOFT WRIST RESTRAINTS ON, AND CARED FOR PER PROTOCOL . MIDLINE IS INTACT AND FLUIDS INFUSING. PT IS BREATHING EVENLY AND UNLABORED ON RA, NO SIGNS OF SOB OR DISTRESS. BED IN LOW AND LOCKED POSITION . WILL ENDORSED TO DAYSHIFT NURSE.
[2017-04-10 07:05] LABS: BASOPHILS % (AUTO) 0.6 % (0.0-2.0); EOSINOPHILS # (AUTO) 0.1 /CMM (0.0-0.7); EOSINOPHILS % (AUTO) 1.4 % (0.0-6.0); HEMATOCRIT 31 % (39-51); HEMOGLOBIN 10.6 g/dL (13.5-17.5); LYMPHOCYTES # (AUTO) 0.6 /CMM (0.8-4.8); LYMPHOCYTES % (AUTO) 10.6 % (20.0-44.0); MEAN CORPUSCULAR HEMOGLOBIN 34 PG (26.0-33.0); MEAN CORPUSCULAR HGB CONC 35 g/dl (31.0-36.0); MEAN CORPUSCULAR VOLUME 98 fL (80-96); MONOCYTES # (AUTO) 0.8 /CMM (0.1-1.30); MONOCYTES % (AUTO) 13.7 % (2.0-12.0); NEUTROPHILS # (AUTO) 4.4 /CMM (1.8-8.9); NEUTROPHILS % (AUTO) 73.7 % (43.0-81.0); PLATELET COUNT (AUTO) 192 /CMM (150-450); RDW COEFFICIENT OF VARIATION 12.9 (11.5-15.0); RED BLOOD CELL COUNT(AUTO) 3.12 MIL/uL (4.5-6.0)
[2017-04-10 07:08] LABS: CALCIUM, SERUM 8.8 mg/dL (8.5-10.1); CARBON DIOXIDE 28 mmol/L (21-32); CHLORIDE 109 mmol/L (98-107); GLUCOSE 126 mg/dL (74-106); MAGNESIUM 2.3 mg/dL (1.8-2.4); PHOSPHORUS 3.7 mg/dL (2.5-4.9); POTASSIUM 3.5 mmol/L (3.5-5.1); SODIUM SERUM 147 mmol/L (136-145); UREA NITROGEN, BLOOD 25 mg/dL (7-18)
[2017-04-10 08:00] VITALS: BP 159/79
--- NOTE | 2017-04-10 08:00 | NUR ---
RN MS NOTES PT IN BED, AWAKE, ALERT, VERBALLY RESPONSIVE, CALM AT THIS TIME, BREATHING PATTERN NORMAL AND NON LABORED, CALL LIGHT WITHIN REACH, KEPT WARM AND COMFORTABLE IN BED.
[2017-04-10] MEDS: DONEPEZIL 5 MG TABLET PO SCH (09:48)
[2017-04-10] MEDS: LISINOPRIL (10MG) 10 MG TABLET PO SCH (09:48)
[2017-04-10] MEDS: TAMSULOSIN 0.4 MG CAP.SR.24H PO SCH (09:48)
[2017-04-10] MEDS: busPIRone 5 MG TABLET PO SCH ×3 (09:48→16:36)
[2017-04-10] MEDS: BENZONATATE 100 MG CAPSULE PO SCH ×3 (09:48→16:36)
[2017-04-10] MEDS: ASPIRIN 81 MG TAB.CHEW PO SCH (09:48)
[2017-04-10] MEDS: GUAIFENESIN LA 600 MG TABLET.SA PO SCH ×2 (09:48→22:12)
[2017-04-10] MEDS: CLOPIDOGREL BISULFATE 75 MG TABLET PO SCH (09:49)
[2017-04-10] MEDS: ENOXAPARIN SODIUM 40 MG/0.4 ML DISP.SYRIN SQ SCH (09:52)
[2017-04-10] MEDS: FLUTICASONE/VILANTEROL 1 EACH BLST.W.DEV IH SCH (09:53)
[2017-04-10] MEDS: LEVOFLOXACIN 750 MG /D5W 150ML 750 MG in PREMIX 1 EA IV SCH (11:50)
[2017-04-10] MEDS: QUETIAPINE FUMARATE 25 MG TABLET PO SCH ×3 (11:50→22:12)
--- NOTE | 2017-04-10 12:12 | NUR ---
RN MS NOTES PT IN BED, AWAKE, ALERT TO SELF, WITH CONFUSION, ASSISTED WITH MEALS, IV FLUIDS INFUSING WELL, ASSISTED IN TURNING AND REPOSITIONING, SEEN BY DR. SANTANA, KEPT CLEAN AND COMFORTABLE.
[2017-04-10 16:00] VITALS: BP 154/63
--- NOTE | 2017-04-10 18:29 | NUR ---
RN MS NOTES PT IN BED, RESTING, EASY TO AROUSE, ASSISTED WITH MEALS, STILL WITH EPISODES OF TRYING TO PULL OUT IV TUBING, BILATERAL SOFT WRIST RESTRAINT ON, IV FLUIDS INFUSING WELL, SAFETY PRECAUTIONS OBSERVED.
[2017-04-10 20:00] VITALS: BP 153/81
[2017-04-10] MEDS: IV NS 0.9% 1,000 ML IV PRN (22:11)
[2017-04-11] MEDS: IPRATROPIUM NEB FS 0.5 MG/2.5 ML AMPUL.NEB IH SCH ×4 (00:29→20:07)
[2017-04-11] MEDS: PIPERACILLIN /TAZOBACTAM 3.375 G in IV D5W 50 ML IV SCH ×5 (00:34→23:56)
--- NOTE | 2017-04-11 04:40 | NUR ---
RN NOTES No significant change in condition. No respiratory distress noted. Noted with confusion, reality orientation provided. No c/o pain or discomfort as of this time. Checked restraints as scheduled, no disruption on peripheral circulation noted. All needs attended. Good perineal care rendered. Will continue to monitor.
--- NOTE | 2017-04-11 07:30 | NUR ---
RN MS NOTES PT IN BED, AWAKE, ALERT TO SELF, WITH CONFUSION, CALM AT THIS TIME, NO COMPLAINT OF PAIN, BREATHING PATTERN NORMAL, TOLERATING ROOM AIR WELL, IV FLUIDS INFUSING WELL, CALL LIGHT WITHIN REACH, NEEDS ATTENDED.
[2017-04-11] MEDS: ACETYLCYSTEINE 10% SOLN 400 MG/4 ML VIAL NEB SCH ×2 (07:35→15:33)
[2017-04-11 08:00] VITALS: BP 155/80
[2017-04-11 08:03] LABS: CALCIUM, SERUM 8.9 mg/dL (8.5-10.1); CARBON DIOXIDE 25 mmol/L (21-32); CHLORIDE 109 mmol/L (98-107); CREATININE 0.9 mg/dL (0.6-1.3); GLUCOSE 125 mg/dL (74-106); POTASSIUM 3.1 mmol/L (3.5-5.1); SODIUM SERUM 144 mmol/L (136-145); UREA NITROGEN, BLOOD 23 mg/dL (7-18)
[2017-04-11] MEDS: DONEPEZIL 5 MG TABLET PO SCH (08:41)
[2017-04-11] MEDS: LISINOPRIL (10MG) 10 MG TABLET PO SCH (08:41)
[2017-04-11] MEDS: FLUTICASONE/VILANTEROL 1 EACH BLST.W.DEV IH SCH (08:41)
[2017-04-11] MEDS: CLOPIDOGREL BISULFATE 75 MG TABLET PO SCH (08:41)
[2017-04-11] MEDS: GUAIFENESIN LA 600 MG TABLET.SA PO SCH ×2 (08:41→20:30)
[2017-04-11] MEDS: QUETIAPINE FUMARATE 25 MG TABLET PO SCH ×3 (08:42→16:15)
[2017-04-11] MEDS: BENZONATATE 100 MG CAPSULE PO SCH ×3 (08:42→16:15)
[2017-04-11] MEDS: TAMSULOSIN 0.4 MG CAP.SR.24H PO SCH (08:42)
[2017-04-11] MEDS: ASPIRIN 81 MG TAB.CHEW PO SCH (08:42)
[2017-04-11] MEDS: busPIRone 5 MG TABLET PO SCH ×3 (08:42→16:15)
[2017-04-11] MEDS: ENOXAPARIN SODIUM 40 MG/0.4 ML DISP.SYRIN SQ SCH (08:43)
[2017-04-11] MEDS: LEVOFLOXACIN 750 MG /D5W 150ML 750 MG in PREMIX 1 EA IV SCH (11:25)
[2017-04-11] MEDS ORDERED: POTASSIUM CHLORIDE 20 MEQ TAB.PRT.SR PO ONE (11:30)
--- NOTE | 2017-04-11 13:00 | NUR ---
RN MS NOTES PT IN BED, RESTING, CALM AT THIS TIME, DAUGHTER GISELA AT BEDSIDE, ASSISTED WITH LUNCH, IV FLUIDS INFUSING WELL, NEEDS ATTENDED.
[2017-04-11 16:00] VITALS: BP 133/78
[2017-04-11] MEDS: IV NS 0.9% 1,000 ML IV PRN (17:43)
--- NOTE | 2017-04-11 18:28 | NUR ---
RN MS NOTES PT IN BED, AWAKE, ALERT, CALM AT THIS TIME, NOT IN DISTRESS, TOLERATING ROOM AIR WELL, ASSISTED WITH DINNER, IV FLUIDS INFUSING WELL, PM MEDS GIVEN, PERINEAL CARE PROVIDED, ALL NEEDS ATTENDED.
--- NOTE | 2017-04-11 19:46 | NUR ---
ms/rn opening notes PATIENT IN BED, ALERT,ORIENTED X1, ABLE TO VERBALIZE NEEDS, SKIN WARM TO TOUCH, REQUIRING RESTRAINTS PATIENT ATTEMPTS TO PULL IV LINE, CHECK CIRCULATION AND HOB ELEVATED, PROVIDE FLUIDS, SKIN WARM TO TOUCH, WILL CONTINUE TO MONITOR.
[2017-04-11 20:00] VITALS: BP 160/88
[2017-04-11] MEDS ORDERED: DIVALPROEX SODIUM 250 MG TABLET.DR PO SCH (22:00)
[2017-04-12] MEDS: ACETYLCYSTEINE 10% SOLN 400 MG/4 ML VIAL NEB SCH ×2 (00:01→07:50)
[2017-04-12] MEDS: IPRATROPIUM NEB FS 0.5 MG/2.5 ML AMPUL.NEB IH SCH ×2 (01:51→07:50)
[2017-04-12] MEDS: PIPERACILLIN /TAZOBACTAM 3.375 G in IV D5W 50 ML IV SCH ×2 (05:29→12:04)
--- NOTE | 2017-04-12 06:22 | NUR ---
313-1 MS/RN NOTES PATIENT IN BED, REQUIRE ASSISTANCE AND REORIENTATION PATIETN ATTEMPTS IV, RESPIRATIONS EVEN AND UNLABORED, SKIN WARM TO TOUCH, DENIES PAIN, BED IN LOCK POSTION WILL ENDORSE TO AM RN FOR JAYA.
[2017-04-12 06:41] VITALS: BP 160/88
[2017-04-12 08:00] VITALS: BP 192/78
--- NOTE | 2017-04-12 08:20 | NUR ---
ms rn received on bed, awake,alert,oriented x1,not in any form of distress, respirations even and unlabored,no sob noted, lungs are diminished, abdomen soft, positive bowel sounds, denies pain at this time, on soft restrain bilateral arms, all needs attended.
--- NOTE | 2017-04-12 09:00 | NUR ---
ms marr breakfast served, due meds given, barely tolerated .
[2017-04-12] MEDS: ASPIRIN 81 MG TAB.CHEW PO SCH (09:15)
[2017-04-12] MEDS: TAMSULOSIN 0.4 MG CAP.SR.24H PO SCH (09:15)
[2017-04-12] MEDS: DONEPEZIL 5 MG TABLET PO SCH (09:15)
[2017-04-12] MEDS: CLOPIDOGREL BISULFATE 75 MG TABLET PO SCH (09:15)
[2017-04-12] MEDS: GUAIFENESIN LA 600 MG TABLET.SA PO SCH (09:15)
[2017-04-12] MEDS: BENZONATATE 100 MG CAPSULE PO SCH ×2 (09:15→12:09)
[2017-04-12] MEDS: busPIRone 5 MG TABLET PO SCH ×2 (09:15→12:09)
[2017-04-12] MEDS: QUETIAPINE FUMARATE 25 MG TABLET PO SCH ×2 (09:15→12:09)
[2017-04-12 09:16] VITALS: BP 192/78
[2017-04-12] MEDS: LISINOPRIL (10MG) 10 MG TABLET PO SCH (09:16)
[2017-04-12] MEDS: FLUTICASONE/VILANTEROL 1 EACH BLST.W.DEV IH SCH (09:24)
[2017-04-12] MEDS: ENOXAPARIN SODIUM 40 MG/0.4 ML DISP.SYRIN SQ SCH (09:33)
[2017-04-12] MEDS ORDERED: LEVOFLOXACIN (750 MG) 750 MG TABLET PO SCH (11:00)
--- NOTE | 2017-04-12 13:30 | NUR ---
MS RN REPORT GIVEN TO NIMISHA PALOMARES, PATIENT TRANSFERRED TO [facility] VIA AMBULANCE, NO DISTRESS NOTED.
== END 2017-04-12 13:15 | DRG 177 ==
LOC: MED 15:07
PROVIDERS: ADMIT Internal Medicine; ATTEND Internal Medicine
PROC: 05H533Z Insertion of Infusion Device into Right Subclavian Vein, Percutaneous Approach (ICD-10-PCS; principal; 2017-04-08)
PROC: B546ZZA Ultrasonography of Right Subclavian Vein, Guidance (ICD-10-PCS; 2017-04-08)
DX: J69.0 Pneumonitis due to inhalation of food and vomit (principal); G93.41 Metabolic encephalopathy; J96.91 Respiratory failure, unspecified with hypoxia; F33.0 Major depressive disorder, recurrent, mild; E44.1 Mild protein-calorie malnutrition; D63.8 Anemia in other chronic diseases classified elsewhere; I10 Essential (primary) hypertension; I25.10 Atherosclerotic heart disease of native coronary artery without angina pectoris; Z86.73 Personal history of transient ischemic attack (TIA), and cerebral infarction without residual deficits; K21.9 Gastro-esophageal reflux disease without esophagitis; E78.5 Hyperlipidemia, unspecified; N40.0 Benign prostatic hyperplasia without lower urinary tract symptoms; F29 Unspecified psychosis not due to a substance or known physiological condition; G31.83 Neurocognitive disorder with Lewy bodies; F02.80 Dementia in other diseases classified elsewhere, unspecified severity, without behavioral disturbance, psychotic disturbance, mood disturbance, and anxiety; Z73.6 Limitation of activities due to disability; Z79.82 Long term (current) use of aspirin; Z79.899 Other long term (current) drug therapy; Z87.891 Personal history of nicotine dependence
CPT/HCPCS: 36415; 71045-TC; 71250-TC; 80048-TC; 80053-TC; 80061-TC; 82248-TC; 83605-TC; 83735-TC; 84100-TC; 85025-TC; 87081-TC; A4216; J1650; J1956; J2060; J2543; J7030; J7060; Z7610